=== PATIENT | female | born 1955 | race Caucasian/White ===

== ENCOUNTER 2018-11-08 11:05 | Inpatient (IN) ==
[2018-11-08] MEDS ORDERED: SALINE LOCK IV FLUID XX ONE (14:30)
--- NOTE | 2018-11-08 17:06 | Diag Imaging Result Doc PS360 ---
CT ABD/PELVIS W/PO AND IV CON - 11/08/2018 INDICATION: diarrhea abd pain COMPARISON: 04/15/2017 FINDINGS: There is mild cardiomegaly. The lung bases are clear. The kidneys are atrophic. There are cholecystectomy clips. The liver, pancreas, spleen, and adrenals are normal. No bowel obstruction or inflammation. Mild diverticulosis of the sigmoid colon. Uterus is absent. Urinary bladder is collapsed. Rectum is normal. There are moderate degenerative changes of the spine. No acute or suspicious bony lesion. IMPRESSION: Severe bilateral renal atrophy. Mild cardiomegaly. This exam was performed using automated exposure control, adjustment of mA or kV according to patient size, and/or use of iterative reconstruction technique Electronically signed by Ezekiel Perez 11/08/2018 5:04 PM
[2018-11-08] MEDS ORDERED: ZOFRAN PO PRN (18:33)
[2018-11-08] MEDS ORDERED: ANTIVERT PO PRN (18:33)
[2018-11-08] MEDS: LIPITOR PO SCH (21:04)
[2018-11-08] MEDS: APRESOLINE PO SCH (21:04)
[2018-11-08] MEDS: PROZAC PO SCH (21:04)
[2018-11-08] MEDS: NEURONTIN PO SCH (21:04)
--- NOTE | 2018-11-08 22:50 | HISTORY AND PHYSICAL ---
CHIEF COMPLAINT: Chronic diarrhea for the last 3 weeks. HISTORY OF PRESENT ILLNESS: She is a 63-year-old white female. I was television host last night. The family called me at around 10 p.m. that the patient has had abdominal cramps, nausea, vomiting, diarrhea, worsening for the last 2 days. She had dialysis yesterday in [place]. By the time I got called, the family left to the emergency room. The patient was seen in the emergency room and evaluated. The patient has some low-grade fever. Normal white cell count. Creatinine 3.6. The patient was sent home on symptomatic treatment. The patient was brought in my office with the family this afternoon and she has some abdominal cramps, diarrhea 4 times in my office. Abdominal exam is soft and benign. Basically admitted to the hospital for observation for evaluation of diarrhea, rule out infectious causes. No prior history of antibiotics. Also get a CT of the abdomen and pelvis. As a result, the patient was admitted. PAST MEDICAL HISTORY: 1. Abnormal EKG with right bundle. 2. COPD on oxygen. 4. Coronary artery disease with small vessel disease. 5. Metabolic syndrome. 6. End-stage kidney disease on dialysis. 7. Hypertension. 8. Acid reflux disease. 9. Hyperlipidemia. 10. IgG lambda monoclonal gammopathy of unknown significance. 11. Tobacco abuse. 12. Mouna's thyroiditis with hyperthyroidism. PAST SURGICAL HISTORY: Tonsillectomy, cholecystectomy, partial hysterectomy, left AV graft. ALLERGIES: Reported to codeine. MEDICATION LIST: Aspirin 81 mg daily, lisinopril 40 mg daily, Prilosec 40 mg daily, gabapentin 100 daily, loratadine 10 mg daily, calcium acetate 667 mg t.i.d., Lipitor 80 mg daily, Prozac 80 mg daily, vitamin D 2000 units daily, hydralazine 50 t.i.d., amlodipine 10 daily, Chantix, methimazole 10 mg half a tablet 5 mg daily. SOCIAL HISTORY: Currently single, 3 children. Lives in [place]. Smoking half a pack a day, trying to quit. No drug abuse. No alcohol abuse. FAMILY HISTORY: Father is 89, still alive with Alzheimer disease. Mom at 74 with diabetes, heart complications. HEALTH MAINTENANCE: Flu vaccine 2017, pneumococcal 2018, mammography 05/2018, Influenza vaccine 2018, pneumococcal vaccine 2017, shingles vaccine 2016, colonoscopy [address] Cordova. Last eye exam June 2018. REVIEW OF SYSTEMS: HEENT: No headache. No vision problem. No earache. No sore throat. Neck: No goiter. No lymphadenopathy. Cardiopulmonary: No chest, shortness of breath, PND, orthopnea. GI: Nausea, vomiting, abdominal cramping. Gallbladder was taken out and diarrhea. No blood in the stool. No swelling of feet. No joint pain. Neurologic: No focal symptoms or weakness. PHYSICAL EXAMINATION: VITAL SIGNS: Temperature is 99.0 degrees, pulse is 88, blood pressure 158/68, 2 L nasal cannula 94%. 5 feet, 176 pounds. HEENT: Atraumatic, normocephalic. Pupils equal, reactive to light. TMs are normal. Nose and throat within normal limits. NECK: Supple. No lymphadenopathy. No goiter. CHEST: Bilateral air entry. HEART: Sounds are regular. ABDOMEN: Belly is soft, nontender. No signs of peritonitis. EXTREMITIES: No peripheral edema, cyanosis. NEUROLOGIC: No obvious neurological deficits. INVESTIGATIONS: Last night, CBC: White cell count 9.7, hematocrit 37, platelets 177,000. Sodium 143, potassium 3.8, chloride 101, BUN 14, creatinine 3.6, glucose 92, calcium 9.1, alkaline phosphatase 167. ALT and ALT normal. Bilirubin 0.4. CK 81, proBNP 13,000. Troponin was negative. Total protein 7.2, albumin 4.0. ASSESSMENT AND PLAN: 1. A 63-year-old white female came in with abdominal pain, nausea, vomiting, diarrhea, low-grade fever. The etiology is not clear. Family wants to admit for observation. Plan is follow up on CT scan of the abdomen and pelvis and stool studies. 2. Hypothyroidism, stable. Recheck free T4 and TSH on methimazole 5 mg daily. 3. End-stage kidney disease. Dialysis as per Dr. Franklin. We will do it in the morning. 4. Reconcile home medications. 5. Ongoing tobacco abuse. Quit smoking. 6. IgG monoclonal gammopathy, insignificant, stable. Based on the stool studies and CT, further recommendations will be followed. In the meantime, we will use the Bentyl or Imodium as needed for diarrhea and Culturelle and will follow up. cc: MD GARRISON MannD
[2018-11-09] MEDS ORDERED: NS 2,000 ML MISC PRN (08:36)
[2018-11-09] MEDS ORDERED: HEPARIN IV PRN (08:36)
[2018-11-09 09:17] LABS: FREE T4 1.23 ng/dL (0.93-1.70); TSH 4.18 uIUmL (0.27-4.20)
[2018-11-09] MEDS: PRILOSEC PO SCH (14:06)
[2018-11-09] MEDS: CULTURELLE PO SCH (14:06)
[2018-11-09] MEDS: CENTRUM SILVER PO SCH (14:06)
[2018-11-09] MEDS: CLARITIN PO SCH (14:06)
[2018-11-09] MEDS: PHOSLO PO SCH ×3 (14:06→18:14)
[2018-11-09] MEDS: ASPIRIN EC PO SCH (14:07)
[2018-11-09] MEDS: APRESOLINE PO SCH ×3 (14:07→20:26)
[2018-11-09] MEDS: CHANTIX PO SCH (14:07)
[2018-11-09] MEDS: PRINIVIL PO SCH (14:07)
[2018-11-09] MEDS: NORVASC PO SCH (14:07)
[2018-11-09] MEDS: TAPAZOLE PO SCH (14:07)
[2018-11-09] MEDS: VITAMIN D PO SCH (14:09)
[2018-11-09] MEDS: DUONEB (A & A) INH SCH ×2 (16:31→21:35)
[2018-11-09] MEDS: LIPITOR PO SCH (20:26)
[2018-11-09] MEDS: NEURONTIN PO SCH (20:26)
[2018-11-09] MEDS: PROZAC PO SCH (20:26)
--- NOTE | 2018-11-09 22:17 | PROGRESS NOTE ---
DATE: 11/09/2018 SUBJECTIVE: Since she has been hospitalized, she has had 4 loose bowel movements, abdominal cramps. No fever. REVIEW OF SYSTEMS: Gastrointestinal symptoms. PHYSICAL EXAMINATION: Temperature is 98.4 degrees, pulse 70, blood pressure 130/87, weight 177 pounds.HEENT: Within normal limits. Neck: Supple. No lymphadenopathy. Chest: Bilateral air entry. Heart sounds are regular. Belly is soft, nontender. Good bowel sounds. No masses palpable. No peripheral edema or cyanosis. No obvious neurological deficits. INVESTIGATIONS: TSH and free T4 are normal. ASSESSMENT AND PLAN: 1. Diarrhea for the last 3 weeks. Etiology to be determined. Follow up on stool cultures. We will also ask a GI consult on-call. 2. End-stage kidney disease, on dialysis by Dr. Franklin. 3. Hypothyroidism. Stable on methimazole 5 mg daily. 4. Continue home medications. Follow up on stool cultures. Continue on Culturelle. LEVEL OF DOCUMENTATION: 25 minutes. cc: Frantz Zuniga MD
--- NOTE | 2018-11-09 22:43 | NEPHROLOGY CONSULTATION ---
DATE: 11/09/2018 REASON FOR CONSULTATION: End-stage renal disease. HISTORY OF PRESENT ILLNESS: Ms. Quiñones is a 63-year-old white female who states "I told you I was sick." She complains of diarrhea and nausea and vomiting. Shortness of breath is present, but she states this is not prominent and not the reason she came to the hospital. Some subjective temperatures, no blood in her bowels, no hematemesis. Today is her routine dialysis day, and she was admitted last night. Received her dialysis on Monday without complication. PAST MEDICAL HISTORY: 1. Chronic kidney disease 5D on hemodialysis. 2. Hypertension. 3. Hyperlipidemia. 4. Diabetes. HOME MEDICATIONS: Include aspirin, lisinopril, omeprazole, gabapentin, loratadine, calcium acetate, atorvastatin, fluoxetine, Meclizine, ondansetron, cholecalciferol, multivitamin, hydralazine, amlodipine, Chantix, methimazole. ALLERGIES: Codeine and hydrocodone. SOCIAL HISTORY: She lives in the [place] area. Continues to smoke. Single. FAMILY HISTORY: Otherwise not contributory. REVIEW OF SYSTEMS: Otherwise not contributory. PHYSICAL EXAMINATION: Vital Signs: Blood pressure 176/48, heart rate 60, respirations 18, afebrile. General: No acute distress. Skin: Warm and dry. HEENT: Conjunctivae are pink. Oropharynx is clear. Neck: Veins are not appreciated. Heart: Regular but distant. Lungs: Equal with diffuse wheezing. Abdomen: Soft, obese, nontender. Bowel sounds present. Extremities: No edema, clubbing or cyanosis. Neurologic exam: Nonfocal. IMPRESSION: Chronic kidney disease 5D. Continue her routine dialysis. She is on dialysis at the time of my exam. Appears euvolemic. We will challenge her dry weight because of her wheezing. Otherwise I have reviewed her medications and no changes are required in her current therapy. cc: MD Frantz Martinez MD
[2018-11-10] MEDS: DUONEB (A & A) INH SCH ×2 (03:20→10:55)
[2018-11-10 06:48] LABS: HEMATOCRIT 29.8 % (37.0-47.0); HEMOGLOBIN 8.9 g/dL (12.0-16.0); MCH 27.6 PG (27-31); MCHC 29.9 g/dL (33-37); MCV 92.3 FL (81-99); MPV 11.2 FL (7.4-10.4); RBC 3.23 XMIL (4.2-5.4); RDW 15.6 % (11.5-14.5); WBC 6.08 X1000 (4.8-10.8)
[2018-11-10 07:52] LABS: ALBUMIN 3.1 g/dL (3.5-5.0); CREATININE 4.6 mg/dL (0.5-0.9); POTASSIUM 3.3 mmol/L (3.5-5.1)
[2018-11-10] MEDS: TAPAZOLE PO SCH (09:16)
[2018-11-10] MEDS: CHANTIX PO SCH (09:16)
[2018-11-10] MEDS: VITAMIN D PO SCH (09:16)
[2018-11-10] MEDS: CLARITIN PO SCH (09:16)
[2018-11-10] MEDS: ASPIRIN EC PO SCH (09:16)
[2018-11-10] MEDS: PRILOSEC PO SCH (09:16)
[2018-11-10] MEDS: PHOSLO PO SCH ×2 (09:17→13:06)
[2018-11-10] MEDS: CENTRUM SILVER PO SCH (09:17)
[2018-11-10] MEDS: PRINIVIL PO SCH (09:17)
[2018-11-10] MEDS: APRESOLINE PO SCH ×2 (09:17→13:06)
[2018-11-10] MEDS: CULTURELLE PO SCH (09:17)
[2018-11-10] MEDS: NORVASC PO SCH (09:17)
[2018-11-10 13:25] LABS: OCCULT BLOOD 1 NEGATIVE (NEGATIVE)
--- NOTE | 2018-11-10 13:54 | PROGRESS NOTE ---
DATE: 11/10/2018 SUBJECTIVE: The patient is not having diarrhea overnight. GI consult was ordered but apparently there was a clerical error and they have not seen the patient. The patient complains of some wheezes, feels like she may have been helped slightly with nebulizer treatments were given per Dr. Franklin. She receives her routine dialysis Monday, Wednesdays, and Fridays. OBJECTIVE: Afebrile, pulse 61, respirations 15, blood pressure 130/44, O2 saturation 3 L 100%.Cardiovascular: RRR. Lungs: Mild expiratory wheezes bilaterally. Extremities: No calf tenderness, cords, or edema. Abdomen: Protuberant, soft, NT, ND. No mass. No HSM. Clostridium difficile toxin and antigen negative. Stool culture negative. LAB DATA: White count 6.08, hemoglobin 8.9, platelets 179,000, potassium 3.3, chloride 102, sodium 141, CO2 of 29, BUN 18, creatinine 4.6, calcium 8, phosphorus 2, albumin 3.1, TSH 4.18, free T4 1.23. CT abdomen and pelvis results reviewed from admission, which showed renal atrophy and cardiomegaly, otherwise negative. ASSESSMENT: 1. Diarrhea with plan per Dr. Zuniga to have the patient have colonoscopy prior to discharge during this hospitalization. 2. Wheezing. 3. End-stage renal disease on hemodialysis. 4. Coronary artery disease. 5. Chronic obstructive pulmonary disease. 6. Hypertension. 7. Hyperlipidemia. 8. Gastroesophageal reflux disease. 9. IgG lambda monoclonal gammopathy of undetermined significance. 10. Ongoing tobacco abuse. 11. Hyperthyroidism with history of Mouna's thyroiditis with normal TFTs, currently. PLAN: Will ask GI to see the patient. If they feel she can be discharged home, we will discharge her home. Otherwise, at this point we will work on her wheezing, increase her DuoNeb to q. 4 hours and monitor on her oxygen. cc: MD Frantz Cantu MD
[2018-11-10 14:51] VITALS: BP 124/52
[2018-11-10] MEDS ORDERED: DUONEB (A & A) INH SCH (15:30)
--- NOTE | 2018-11-10 20:53 | GASTROENTEROLOGY CONSULTATION ---
DATE: 11/10/2018 REQUESTING PHYSICIAN: Dr. Zuniga. REASON FOR CONSULTATION: Diarrhea and anemia. HISTORY OF PRESENT ILLNESS: Ms. Quiñones is a 63-year-old female who was admitted on 11/08/2018, for symptoms of chronic diarrhea for the last 3 weeks. Gastroenterology was consulted for further management. She has had stool studies done. Preliminary stool culture is negative. Clostridium difficile antigen and toxin are negative. She denies any nausea, vomiting, vomiting blood. Denies any fresh blood in the stools. She does complain of occasional dark brown stools. She was noted to be anemic. Her Hemoccult is negative. Her last EGD was done by Dr. Dean in 2018, which showed evidence of gastritis. PAST MEDICAL HISTORY: Abnormal EKG with right bundle-branch block, COPD, on oxygen; coronary artery disease with small vessel disease, metabolic syndrome, end-stage renal disease, on hemodialysis Monday, Monday, Monday with Dr. Franklin; hypertension, acid reflux disease, hyperlipidemia, IgG lambda monoclonal gammopathy of unknown significance, tobacco abuse, Mouna's thyroiditis with hyperthyroidism. PAST SURGICAL HISTORY: Tonsillectomy, cholecystectomy, partial hysterectomy, left AV graft, EGD last year. She had her last colonoscopy done a few years ago, which she was told that she has diverticulosis. ALLERGIES: Codeine and hydrocodone. MEDICATIONS IN THE HOSPITAL: Reviewed in the EMR. SOCIAL HISTORY: She is currently single. She has 3 children. She lives in [place]. She smokes half a pack a day. She is trying to quit. She has no history of alcohol abuse. No history of drug abuse. Her daughter was present at bedside along with the family. FAMILY HISTORY: Father is 89 and is alive, has Alzheimer's disease. Mother at age 74, with diabetes and heart complications. HEALTH MAINTENANCE: According to the records here, her last colonoscopy was done in 2016, with Dr. Cordova. REVIEW OF SYSTEMS: A 12-point review of systems was negative other than described in HPI. PHYSICAL EXAMINATION: Temperature 98.2 degrees, pulse rate 67, respiratory rate 18, blood pressure 120/52, saturating 90% on nasal cannula. Body weight of 176 pounds. BMI 32.2 kg/m2.General: Moderately built, moderately nourished, lying in bed, in no acute distress. HEENT: Pale conjunctivae. No icterus. Pupils equal, reactive to light. Neck: Supple. Abdomen: Soft, protuberant, nontender, nondistended. No guarding or rebound. Extremities: No cyanosis or clubbing. Neurologic: She is alert, awake, oriented x3. LABORATORY AND DIAGNOSTIC DATA: Hemoglobin and hematocrit is 8.9 and 29.8, white count of 6.08, platelet count of 179,000. Sodium 141, potassium 3.3, chloride 102, bicarbonate of 29, anion gap 10, BUN of 18, creatinine 4.6, glucose of 121, calcium is 8, phosphorus 2.0, albumin 3.1. Stool occult blood was negative. TSH is 4.1, and T4 of 1.23. Stool studies negative so far. Negative culture. Negative C. difficile antigen. Negative C. difficile toxin. CT of the abdomen and pelvis done on 11/08/2018, showed severe bilateral renal atrophy and mild cardiomegaly. No bowel obstruction. Mild diverticulosis of sigmoid colon. IMPRESSION AND PLAN: 1. Diarrhea. Negative stool studies. She could have irritable bowel syndrome. We will perform a colonoscopy and EGD for further workup. In order to perform endoscopy, we will hold her aspirin for a few days before the procedure. At this moment, patient wants to go home and wants to do as an outpatient. She denies any signs of active bleeding. Her Hemoccult is negative. We will [facility] If she stays inpatient, then we will do it early in the week as well. 2. End-stage renal disease. On hemodialysis per Dr. Franklin. 3. Hyperthyroidism. She is on methimazole 5 mg once daily. 4. Tobacco abuse. Patient was counseled to quit smoking completely. 5. Chronic obstructive pulmonary disease. She is being treated per the primary team. 6. Hypertension, hyperlipidemia, diabetes. This is being managed by the primary team. 7. The patient is on Prilosec once daily for chronic reflux disease. Her last EGD was done by Dr. Dean 2017, which showed evidence of gastritis. 8. The above plans discussed with the patient and family at bedside. All questions answered. Please call us with any further questions. cc: MD Frantz Montoya MD
--- NOTE | 2018-11-11 19:30 | DISCHARGE SUMMARY ---
ADMISSION DATE: 11/08/2018 DISCHARGE DATE: 11/10/2018 DISCHARGING DIAGNOSIS: Abdominal pain, diarrhea, most likely nonspecific versus irritable bowel syndrome. SECONDARY DIAGNOSES: 1. Chronic obstructive pulmonary disease on oxygen. 2. Abnormal EKG with right bundle. 3. Coronary artery disease with small vessel disease. 4. Metabolic syndrome. 5. End-stage kidney disease on hemodialysis 3 times a week. 6. Hypertension. 7. Acid reflux disease. 8. Hyperlipidemia. 9. Tobacco abuse. 10. Mouna's thyroiditis with hypothyroidism-euthyroid. 11. IgG lambda monoclonal gammopathy of unknown significance. CONSULTATIONS: Dr. Franklin, Dr. Lu. BRIEF HISTORY: Please see the H and P that was done 11/08/2018. In brief she is a 63-year-old white female complains of abdominal cramps, nausea, not eating well, diarrhea off and on for the 3 weeks, worsening for the last 2 days. The patient was seen in the emergency room. The patient was sent home as an outpatient. She returned to my office. The patient has 4 loose bowel movements in my office and family was worried about the cause of the diarrhea, unable to do as an outpatient. The patient was admitted for observation. During the hospital, patient did not have any explosive diarrhea. Stool cultures were negative for Clostridium difficile. CT scan of the abdomen and pelvis: Severe bilateral renal atrophy, mild cardiomegaly and diverticulosis. The patient was given symptomatic for diarrhea with Imodium A and D and GI consult was obtained by Dr. Lu. He said it is most likely IBS and he is going to do as an outpatient colonoscopy. Thyroid function test came back normal. Patient has been tolerating methimazole 5 mg daily. The patient previously had done by Dr. Dean. LABS: CBC: White cell count 6, hematocrit 29.8, platelets 179,000. Sodium 141, potassium 3.3, chloride 102, BUN 18, creatinine 4.6, calcium 8. Thyroid function was normal. Stool for occult blood was negative. DISCHARGE INSTRUCTIONS: 1. Outpatient followup with colonoscopy with Dr. Lu. 2. Continue hemodialysis as per Dr. Franklin in [place]. 3. Lisinopril 40 mg daily, Prilosec 40 mg daily, aspirin 81 mg daily, gabapentin 100 mg at bedtime, Loratadine 10 mg daily, calcium acetate 667 p.o. t.i.d., Lipitor 80 mg daily, Prozac 80 mg at bedtime, vitamin D3 2000 units daily, hydralazine 50 p.o. t.i.d., multivitamin 1 tablet daily, amlodipine 10 daily. Continue Chantix for detox of tobacco abuse. Metronidazole 5 mg daily. 4. Follow up in my office next week as well as Dr. Lu. cc: MD Ramírez Mann MD Manish Arora, MD
== END 2018-11-10 18:28 | disposition home or self-care (01) | DRG 391 ==
LOC: DIRADM 11:05 → OBSVTOIN 11:05 → INTOOBSV 11:05 → EDIPHOLD 13:22 → 1N 18:07
PROVIDERS: ADMIT Internal Medicine; ATTEND Internal Medicine

== ENCOUNTER 2019-04-29 10:57 | Inpatient (IN) ==
[2019-04-29] MEDS ORDERED: SALINE LOCK IV FLUID XX ONE (12:02)
--- NOTE | 2019-04-29 12:15 | EKG Report ---
Test Performed on : 04/29/2019 12:07:29 PM Test Reason : uncontrolled htn Blood Pressure : / mmHG Vent. Rate : 071 BPM Atrial Rate : 071 BPM P-R Int : 174 ms QRS Dur : 108 ms QT Int : 492 ms P-R-T Axes : 063 -47 030 degrees QTc Int : 534 ms Normal sinus rhythm. Possible Left atrial enlargement Incomplete right bundle branch block Left anterior fascicular block Prolonged QT Abnormal ECG When compared with ECG of 07-NOV-2018 23:07, Incomplete right bundle branch block has replaced Right bundle branch block Confirmed by Francisco J Rowley MD ([id number]) on 05/01/2019 6:05:54 PM
[2019-04-29] MEDS: APRESOLINE IV PRN (12:21)
[2019-04-29] MEDS: TORADOL IV PRN ×2 (12:21→18:55)
[2019-04-29] MEDS ORDERED: ANTIVERT PO PRN (12:38)
[2019-04-29] MEDS ORDERED: ZOFRAN PO PRN (12:38)
--- NOTE | 2019-04-29 12:47 | Diag Imaging Result Doc PS360 ---
EXAM: CT HEAD W/O CONTRAST 04/29/2019 HISTORY: headache TECHNIQUE: This exam was performed using automated exposure control, adjustment of mA or kV according to patient size, and/or use of iterative reconstruction technique. COMMENT: There is no evidence of mass effect, bleed, or abnormal extra-axial fluid collection. The visualized paranasal sinuses are clear. The calvarium is intact. IMPRESSION: No evidence of acute intracranial disease. Electronically signed by Wilian Winslow 04/29/2019 12:45 PM
[2019-04-29] MEDS: PRILOSEC PO SCH (13:08)
[2019-04-29] MEDS: NORVASC PO SCH (13:08)
[2019-04-29] MEDS: CLARITIN PO SCH (13:08)
[2019-04-29] MEDS: PRINIVIL PO SCH (13:08)
[2019-04-29] MEDS: PHOSLO PO SCH ×2 (14:40→16:53)
[2019-04-29] MEDS: VITAMIN D PO SCH (14:56)
[2019-04-29] MEDS: APRESOLINE PO SCH ×2 (14:56→16:53)
[2019-04-29] MEDS: THERA M PLUS PO SCH (14:57)
[2019-04-29] MEDS: TAPAZOLE PO SCH (14:59)
--- NOTE | 2019-04-29 20:12 | NEPHROLOGY CONSULTATION ---
DATE: 04/29/2019 REASON FOR ADMISSION: Hypertension, with complaints of headache. REASON FOR CONSULT: Dialysis. CONSULTING PHYSICIAN: Dr. Zuniga. HISTORY OF PRESENT ILLNESS: Ms. Quiñones is a 64-year-old white female who is known to our outpatient services for hemodialysis on Monday, Monday, Monday at the [facility]. Patient stated that she has been having a headache on and off for the last couple of weeks. Blood pressure has been elevated. She was on dialysis today. Her headache continued to get worse secondary to these symptoms, she had signed off early, and came in to [facility] for further monitoring and evaluation. Head CT was performed in the emergency room, found with no evidence of acute intracranial disease. The patient's blood pressure upon arrival was 204/72. The patient was subsequently treated and given her daily medicine of amlodipine. She was treated with hydralazine 10 mg IV. States that she had taken her lisinopril and her Antivert prior to going to her dialysis treatment. At this time, she denies chest pain, no increased work of breathing, no increased lower extremity swelling, no nausea or vomiting, and no diarrhea. Complains of a headache with discomfort going down the right side of her neck behind her ear. PAST MEDICAL HISTORY: 1. End-stage renal disease, with hemodialysis on Monday, Monday, Monday at the [facility]. 2. Abnormal EKGs, with a history of a right bundle branch. 3. COPD, with home oxygen/ 4. Coronary artery disease with small vessel disease. 5. Metabolic syndrome. 6. Hypertension. 7. Acid reflux. 8. Hyperlipidemia. 9. IgG lambda monoclonal gammopathy, of unknown significance to the patient's condition. 10. Tobacco abuse. 11. Mouna's thyroiditis, with hyperthyroidism. 12. Kidney stones. 13. Colonoscopy. 14. Tennis elbow. 15. Neuropathy. 16. Diabetes mellitus type 2. 17. Osteoarthritis of both hands and feet. PREVIOUS SURGICAL HISTORY: 1. Tonsillectomy. 2. Cholecystectomy. 3. Partial hysterectomy. 4. Left AV graft. SOCIAL HISTORY: She is . She has 3 children. Smoking status is current tobacco use, some days smoker. FAMILY HISTORY: Known for diabetes. Sister with cancer, cervical, at the age of 53, mental illness. Positive heart disease, kidney disease, hypertension. ALLERGIES: Listed as codeine and hydrocodone. HOME MEDICATIONS: Have yet to be reconciled. REVIEW OF SYSTEMS: Review of systems x10 with pertinent positives listed above in the HPI. PHYSICAL EXAMINATION: Most recent Vital signs: Temperature 98.2 degrees, blood pressure 158/60, heart rate 66, respirations are 18. The patient is currently on 2 L nasal cannula. Last recorded saturation 97%. She has had 178 in. She has had 0 recorded out. She does not remember how much she had pulled off on dialysis. She has no labs that have been drawn at this time. We will order some for the a.m. General: This is a 64-year-old white female who appears chronically ill, in no acute distress. Skin: Warm and dry. HEENT: Normocephalic, atraumatic. Conjunctiva is pale pink. She has PERRL. Mucous membranes are dry. Neck: Supple. Trachea midline. No evidence of JVD in the upright position. Cardiovascular: She is regular rate and rhythm. She does have a systolic murmur. Lungs: Clear to auscultation bilaterally. Equal excursion on O2. Abdomen: Large, round, obese, soft and nontender. Positive bowel sounds. Genitourinary: Not inspected. Minimal void with dialysis assist. Extremities: Has an AV fistula to the left upper arm with good palpable thrill. No edema to the lower extremities. Good palpable pulses. Neurological: She is alert and oriented x3. ASSESSMENT AND PLAN: 1. Chronic kidney disease stage 5D. The patient had her routine dialysis treatment today. She has no complaints of increased work of breathing. No indications for intervention today. We will evaluate in the a.m. Otherwise, plan for her routine dialysis treatment again on Monday. 2. Electrolytes and acid-base balance. We will have these drawn in the a.m. 3. Anemia, again drawn in the a.m. 4. Headache, with hypertension. Patient has been restarted back on her medications from home. CT of the head is negative. We will follow along with the primary care. I would like to thank you for allowing us to follow with this patient. Dictated by DANA Maddox for Ramírez Franklin MD cc: DANA Maddox MD Jagan Reddy, MD MTDD
[2019-04-29] MEDS: PROZAC PO SCH (21:08)
[2019-04-29] MEDS: LIPITOR PO SCH (21:09)
--- NOTE | 2019-04-29 22:31 | HISTORY AND PHYSICAL ---
CHIEF COMPLAINT: Headache, elevated blood pressure. HISTORY OF PRESENT ILLNESS: She is a 64-year-old white female who basically was evaluated by Dr. Casillas during dialysis, elevated blood pressure. Obviously hydralazine was increased to 50 two tablets twice daily. Nevertheless I saw the patient in the walk-in clinic with the nurse practitioner, elevated blood pressure was 200, and I gave some clonidine and changed the hydralazine to 100 mg t.i.d. Then apparently the patient was brought in my office at the dialysis center that she could not finish the dialysis. She has a tremendous headache along with elevated blood pressure. She was crying. There is no vision problems. Basically she was admitted to the hospital for accelerated hypertension with encephalopathy. I ordered a CT of the head and gave her some hydralazine as needed. As a result a hospital admission was warranted. PAST MEDICAL HISTORY: Abnormal EKG with a right bundle, COPD on oxygen, CAD, small vessel disease, metabolic syndrome, end-stage kidney disease on hemodialysis 3 times a week, hypertension, acid reflux disease, hyperlipidemia, IgG lambda monoclonal gammopathy of unknown significance, tobacco abuse, Mouna's thyroiditis with hypothyroidism. PAST SURGICAL HISTORY: Tonsillectomy, cholecystectomy, partial hysterectomy, AV graft on the left side. ALLERGIES: Reported to codeine. MEDICATIONS: Aspirin 81 mg daily, lisinopril 40 mg daily, Prilosec 40 mg daily, gabapentin 100 mg daily, loratadine 10 mg daily, calcium acetate 667 mg t.i.d., Lipitor 80 mg daily, Prozac 80 mg daily, vitamin D 2000 units daily, hydralazine 100 mg t.i.d., amlodipine 10 daily, methimazole 10 half tablets b.i.d. SOCIAL HISTORY: Currently single, 3 children. Lives in [place]. Smoking half a pack a day, trying to quit. No drug abuse. No alcohol abuse. FAMILY HISTORY: Father is 89 and alive with Alzheimer disease. Mom of diabetes complications. HEALTH MAINTENANCE: Flu vaccine in 2018. Pneumococcal in 2018. Last colonoscopy in 2016. REVIEW OF SYSTEMS: HEENT: Headache, vision problem. No earache. No sore throat. Neck: No neck pain. No goiter. No lymphadenopathy. No bruit. Cardiopulmonary: No chest pain, shortness of breath, PND or orthopnea. GI: No nausea, vomiting or abdominal pain. : No history of hesitancy, frequency or dysuria. No swelling of legs. No focal symptoms. PHYSICAL EXAMINATION: VITAL SIGNS: Temperature is 98.2 degrees, pulse 66, blood pressure in my office is 200/80, and the patient is in a lot of pain. HEENT: Atraumatic, normocephalic. Pupils are equal and reactive to light. TMs are normal. Nose and throat within normal limits. NECK: Supple. No lymphadenopathy. No goiter. CHEST: Bilateral air entry. HEART: Sounds are regular. ABDOMEN: Soft, obese, nontender. EXTREMITIES: No peripheral edema or cyanosis. NEUROLOGIC: No obvious neurological deficits. IMAGING: CT of the head is negative. EKG is normal sinus rhythm, incomplete right bundle, nothing acute. ASSESSMENT AND PLAN: 1. A 64-year-old white female admitted to the hospital INC 00:04:49> hypertension with encephalopathy and optimize the treatment. 2. End-stage kidney disease on hemodialysis. 3. Next check the thyroid function tests in the morning. 4. Hyperlipidemia on Lipitor 80 daily. 5. Depression on Prozac 40 daily. 6. Hypertension. Combination of amlodipine 10 daily, hydralazine 100 t.i.d., lisinopril 40 daily. 7. Hypothyroidism due to thyroid disease on Tapazole 5 mg daily. Check the thyroid function tests. Continue on Prilosec 40 mg daily. 8. Chronic kidney disease. Management as per Dr. Franklin. 9. For pain I gave some Toradol as needed and we will follow up on the clinical course and consult Dr. Franklin. cc: Frantz Zuniga MD
[2019-04-30 08:01] LABS: MCH 25.8 PG (27-31); MCHC 28.9 g/dL (33-37); MPV 10.6 FL (7.4-10.4); RBC 4.27 XMIL (4.2-5.4); RDW 17.3 % (11.5-14.5); WBC 5.76 X1000 (4.8-10.8)
[2019-04-30] MEDS: PHOSLO PO SCH ×3 (08:11→17:06)
[2019-04-30] MEDS: VITAMIN D PO SCH (08:11)
[2019-04-30] MEDS: CLARITIN PO SCH (08:11)
[2019-04-30] MEDS: TAPAZOLE PO SCH (08:11)
[2019-04-30] MEDS: PRILOSEC PO SCH (08:11)
[2019-04-30] MEDS: PRINIVIL PO SCH (08:11)
[2019-04-30] MEDS: THERA M PLUS PO SCH (08:12)
[2019-04-30] MEDS: NORVASC PO SCH (08:12)
[2019-04-30] MEDS: APRESOLINE PO SCH ×3 (08:12→17:06)
[2019-04-30 08:18] LABS: CALCIUM 8.9 mg/dL (8.8-10.2); POTASSIUM 4.1 mmol/L (3.5-5.1)
[2019-04-30 08:25] LABS: CREATININE 5.9 mg/dL (0.5-0.9)
[2019-04-30 08:46] LABS: FREE T4 1.24 ng/dL (0.93-1.70); TSH 2.58 uIUmL (0.27-4.20)
--- NOTE | 2019-04-30 16:55 | ECHO REPORT ---
ORDER DATE: 04/30/2019 INTERPRETING PHYSICIAN: Dr. Sb Hudson. ECHOCARDIOGRAPHIC MEASUREMENTS: 1. Interventricular septum: 1.1 cm. 2. Left ventricular posterior wall: 1.0 cm. 3. Diastolic diameter: 5.2 cm. 4. Left atrium: 4.4 cm. 5. Aorta: 2.9 cm. SUMMARY OF THE 2-DIMENSIONAL IMAGIN. Aortic valve leaflets were mildly sclerosed, trileaflet, opening normally. 2. Pulmonic valve was normal. 3. There is mild pulmonary regurgitation. 4. Tricuspid valve was normal. 5. Mitral valve was normal. 6. There is mild mitral annular calcification. 7. Normal left ventricular cavity size. 8. Estimated ejection fraction of 65%. 9. There is left atrial enlargement. 10. There is mild tricuspid regurgitation. 11. Peak velocity across the tricuspid valve was 4 meters per second. 12. Pulmonary artery systolic pressure of 76 mmHg. 13. There is left atrial enlargement. 14. There is grade 2 diastolic dysfunction. 15. Peak velocity across the aortic valve less than 2 meters per second. 16. There is no aortic stenosis. 17. There is no aortic regurgitation. 18. Trace anterior echo-free space suggestive trace posterior pericardial effusion. 19. There is no evidence of tamponade. cc: MD Daphney Leahy CRNP Jagan Reddy, MD
--- NOTE | 2019-04-30 20:01 | PROVIDER PROGRESS NOTE ---
Progress Note Subjective: patient voice is feeling better. She denies any uremic complaints. Objective: temperature 98.3, pulse 62, respirations 14, blood pressure 151/51, O2 sat 100% on nasal cannula 2liters. General: obese white female lying in bed in no acute distress. HEENT: normocephalic, atraumatic, pupils equal and reactive. Mucous membranes moist. Skin: warm and dry. Neck: supple, positive JVD. Cardiovascular: S1S2, regular rate and rhythm, no murmurs or gallops. Respiratory: clear with equal air entry anteriorly Abdomen: soft, nontender nondistended. Bowel sounds present. : non-inspected Extremities: trace edema to the bilateral lower extremities Neurological: alert and oriented to person place and time Labs: WBC 5.76, hemoglobin 11.0, hematocrit 38.0, sodium 137, potassium 4.1, chloride 98, carbon dioxide 27, BUN 32, creatinine 5.9. Impression: Chronic kidney disease stage 5D. Patient received her treatment yesterday in the outpatient setting. We will keep her on her routine schedule and plan for hemodialysis tomorrow. Uncontrolled hypertension. Her blood pressure is stable with current plan. Continue to monitor. Fluid volume. Slightly expanded. Monitor. Anemia. Low but stable. Electrolytes and acid base balance. Stable. Nutrition. Adequate. Physical deconditioning. PT consult. Medication review. No changes.
--- NOTE | 2019-04-30 20:06 | PROGRESS NOTE ---
DATE: 04/30/2019 SUBJECTIVE: The patient is doing better. Decreased headache. Blood pressure is stable and echocardiography was done. It showed EF of 65%. Normal LV cavity size. Pulmonary hypertension noted. Grade 2 diastolic dysfunction. Trace pericardial effusion. OBJECTIVE: Temperature is 98 degrees, blood pressure is stable, 92% on room air.HEENT: Within normal limits. Neck: Supple. Chest: Bilateral air entry. Heart: Sounds are regular. Belly soft, nontender. No obvious deficits. INVESTIGATIONS: CBC is normal. SMA 7, creatinine 7.9. Thyroid function normal. ASSESSMENT AND PLAN: 1. Uncontrolled hypertension, optimize the treatment stable. Echocardiogram findings reassuring. 2. Grade 2 diastolic dysfunction, pulmonary hypertension, hypothyroidism due to thyroiditis stable on methimazole 5 mg daily. 3. End-stage kidney disease going dialysis tomorrow. If he continues to stable will discharge after dialysis in the morning. LEVEL OF DOCUMENTATION: 25 minutes. cc: Frantz Zuniga MD
[2019-04-30] MEDS: LIPITOR PO SCH (22:46)
[2019-04-30] MEDS: PROZAC PO SCH (22:46)
[2019-04-30] MEDS: APRESOLINE IV PRN (22:48)
[2019-05-01] MEDS: VITAMIN D PO SCH (08:18)
[2019-05-01] MEDS: CLARITIN PO SCH (08:18)
[2019-05-01] MEDS: NORVASC PO SCH (08:18)
[2019-05-01] MEDS: THERA M PLUS PO SCH (08:18)
[2019-05-01] MEDS: PRINIVIL PO SCH (08:18)
[2019-05-01] MEDS: PRILOSEC PO SCH (08:18)
[2019-05-01] MEDS: TAPAZOLE PO SCH (08:19)
[2019-05-01] MEDS: APRESOLINE PO SCH ×3 (08:19→16:14)
[2019-05-01] MEDS: PHOSLO PO SCH ×3 (08:19→16:14)
[2019-05-01] MEDS ORDERED: NS 2,000 ML MISC PRN (14:29)
[2019-05-01] MEDS ORDERED: TIGHT: 0.2 ML/HR FOR DIALYSIS MISC PRN (14:29)
[2019-05-01] MEDS ORDERED: HEPARIN IV PRN (14:29)
[2019-05-01] MEDS: TORADOL IV PRN (16:22)
--- NOTE | 2019-05-01 16:30 | PROVIDER PROGRESS NOTE ---
Progress Note Subjective: She denies any uremic complaints and is anticipating discharge soon. She says her blood pressure has been under control for the last 48 hours. Objective: temperature 97.8, pulse 70, respirations 20, blood pressure 152/49, 02 sat 92% on Room air. General: obese white female lying in bed in no acute distress. HEENT: normocephalic, atraumatic, pupils equal and reactive. Mucous membranes moist. Skin: warm and dry. Neck: supple, 6cm JVD. Cardiovascular: S1S2, regular rate and rhythm, soft systolic murmur. No gallop. Respiratory: clear with equal air entry anteriorly Abdomen: soft, nontender nondistended. Bowel sounds present. : non-inspected Extremities: trace edema to the bilateral lower extremities Neurological: alert and oriented to person place and time. Impression: Chronic kidney disease stage 5D. She will have a routine hemodialysis today and anticipate discharge after. We will follow up with her in the outpatient setting. Uncontrolled hypertension. Her blood pressure has been stable for 48 hours. Fluid volume. Slightly expanded. Manage with hemodialysis today. Electrolytes and acid base balance. Stable on last labs, manage with hemodialysis. Nutrition. Adequate. Physical deconditioning. PT in place. Medication review. No changes.
[2019-05-01 17:06] VITALS: BP 153/55
--- NOTE | 2019-05-04 21:09 | DISCHARGE SUMMARY ---
ADMISSION DATE: 04/29/2019 DISCHARGE DATE: 05/01/2019 DISCHARGING DIAGNOSIS: Accelerated hypertension with metabolic encephalopathy. SECONDARY DIAGNOSES: 1. Chronic right bundle branch block with COPD on oxygen. 2. Chronic tobacco abuse. 3. CAD with small vessel disease. 4. Metabolic syndrome. 5. End-stage kidney disease on hemodialysis 3 times a week. 6. Hypertension. 7. Acid reflux disease. 8. Hyperlipidemia. 9. IgG lambda monoclonal gammopathy of unknown significance. 10. Mouna's thyroiditis with hyperthyroidism on methimazole. CONSULTS: Dr. Franklin for dialysis. BRIEF HISTORY: She is a 64-year-old white female with a blood pressure that was elevated as an outpatient and Dr. Franklin has been titrating the medicine with hydralazine. The patient did not comply with medications. She was seen twice in my office with clonidine and during dialysis, blood pressure was so high with headache and abruptly stopped in the middle of the dialysis and came to my office. Blood pressure was close to 200. Basically admitted to the hospital for accelerated hypertension and basically optimize the treatment. During the hospital course, CT head was negative. I did optimize the hydralazine 100 mg t.i.d. Follow up on thyroid function test came back normal. Patient has been taking methimazole 5 mg daily. Pressure is pretty much stable. At this time, there is no need to do any further secondary workup. LABS: White cell count 5 point C, hematocrit 38, platelets 155,000. Sodium 137, potassium 4.1, BUN 32, creatinine 5.9, glucose 69. Thyroid function tests were normal. 1. CT head was no evidence of acute intracranial disease. 2. Echocardiography findings are LV function is 65%. Significant secondary pulmonary hypertension based on the TR velocity 76 mmHg and grade 2 diastolic dysfunction was noted. No evidence of tamponade. DISCHARGE INSTRUCTIONS: 1. Lisinopril 40 mg daily, Prilosec 40 daily, loratadine 10 daily, calcium acetate 667 p.o. t.i.d., atorvastatin 8 mg daily, Prozac 40 mg daily and cholecalciferol 2000 units daily, multivitamin 1 tablet daily, hydralazine 100 mg p.o. t.i.d., amlodipine 10 daily, methimazole 5 mg daily, thyroid functions normal. She used to be hyperthyroid. Continue to monitor thyroid function tests every 4 months and continue to monitor the blood pressure with present doses and significant secondary pulmonary hypertension due to chronic obstructive pulmonary disease and smoking-quit smoking. 2. Follow up with Dr. Franklin 3 times a week for hemodialysis. He is going to monitor the blood pressure. cc: MD Ramírez Mann MD
== END 2019-05-01 17:06 | disposition home or self-care (01) | DRG 77 ==
LOC: DIRADM 10:57 → EDIPHOLD 11:21 → 3N 13:59
PROVIDERS: ADMIT Internal Medicine; ATTEND Internal Medicine